=== PATIENT | female | born 1985 | race Caucasian/White ===

== ENCOUNTER 2017-05-16 09:49 | Emergency (ER) | payer OTHER ==
[2017-05-16 09:59] VITALS: BP 118/71
--- NOTE | 2017-05-16 10:58 | UC ---
chris Stanton Timothy, scribed for Kanchan Argueta MD on 05/16/17 at 1038 . FLU HPI - HPI Summary HPI Summary: Adriana Botello is a 31 yo female presenting to [facility] with sinus congestion and fatigue since 05/11/17, with 5/10 sore throat. Pt reports ear congestion, sinus congestion, post nasal drip. She also notes productive cough, yellow sputum - states "its my snot" She also c/o intermittent fevers and has treated with Motrin. Last dose last night. Pt denies nausea, vomiting. Pt report HERNANDEZ. No vision change. No rash. 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 Pt smokes 1/2 ppd. Her PMHx includes asthma, hemorrhage, possible mood d/o and tobacco use. She has not self-medicated today. Pt medication list reviewed this visit. - History of Current Complaint Chief Complaint: UCGeneralIllness Stated Complaint: SORE THROAT Time Seen by Provider: 05/16/17 10:52 Hx Obtained From: Patient Hx Last Menstrual Period: Pt states BC for period q 3 months; doesn't know date Onset/Duration: Gradual Onset, Lasting Days, Still Present Severity Currently: Moderate Severity Initially: Moderate Pain Intensity: 5 Pain Scale Used: 0-10 Numeric Associated Signs & Symptoms: Positive: Fever, T Max - 105, Cough, Sore Throat, Nasal Congestion - Allergy/Home Medications Allergies/Adverse Reactions: Allergies Allergy/AdvReac Type Severity Reaction Status Date / Time Aloe Allergy Severe Rash Verified 05/16/17 09:59 Hydrocodone [From Vicodin] Allergy Rash Verified 05/16/17 09:59 latex Allergy Swelling Uncoded 05/16/17 09:59 Home Medications: Home Medications Levonorgestrel-Ethinyl Estradi [Ashlyna 0.15-0.03 &0.01 mg] 1 tab PO DAILY 05/16 [History Confirmed 05/16/17] PMH/Surg Hx/FS Hx/Imm Hx Previously Healthy: Yes Respiratory History: Asthma Psychological History: Other Other Psychological History: possible mood d/o Other History Of: Negative For: Anticoagulant Therapy - Surgical History Surgical History: Yes Surgery Procedure, Year, and Place: D&C - Family History Known Family History: Positive: Cardiac Disease, Diabetes, Respiratory Disease - Social History Alcohol Use: None Substance Use Type: None Substance Use Comment - Amount & Last Used: pt notes remote hx of use. no use during preg noted Smoking Status (MU): Heavy Every Day Tobacco Smoker Type: Cigarettes Amount Used/How Often: 1/2 PPD Have You Smoked in the Last Year: Yes Household Exposure Type: Cigarettes - Immunization History Most Recent Influenza Vaccination: never Most Recent Tetanus Shot: up to date - 2009 Most Recent Pneumonia Vaccination: never Review of Systems Constitutional: Fever, Fatigue Skin: Negative Eyes: Negative ENT: Sore Throat, Nasal Discharge, Sinus Congestion Respiratory: Negative Cardiovascular: Negative Gastrointestinal: Negative Genitourinary: Negative Motor: Negative Neurovascular: Negative Musculoskeletal: Negative Neurological: Negative Psychological: Negative All Other Systems Reviewed And Are Negative: Yes Physical Exam Triage Information Reviewed: Yes Appearance: Well-Appearing - tired appearing, No Pain Distress, Well-Nourished Vital Signs: Initial Vital Signs Temp 98.2 F 05/16/17 09:55 Pulse 87 05/16/17 09:55 Resp 16 05/16/17 09:55 BP 118/71 05/16/17 09:55 Pulse Ox 100 05/16/17 09:55 Vital Signs Reviewed: Yes Eye Exam: Normal ENT Exam: Normal ENT: Positive: Normal ENT inspection. Negative: TMs normal - left TM + fluid, no retraction turnbinates inflammed and boggy + PND No exudate, no erythema uvula midline Dental Exam: Normal Neck exam: Normal Neck: Positive: Supple Respiratory Exam: Normal Respiratory: Positive: Chest non-tender, Lungs clear, Normal breath sounds, No respiratory distress, No accessory muscle use, Other: - mild, intermittent cough Cardiovascular Exam: Normal Cardiovascular: Positive: RRR, No Murmur Abdominal Exam: Normal Abdomen Description: Positive: Nontender, No Organomegaly, Soft Bowel Sounds: Positive: Present Musculoskeletal Exam: Normal Musculoskeletal: Positive: Strength Intact Neurological Exam: Normal Neurological: Positive: Alert Psychological Exam: Normal Skin Exam: Normal Flu Course/Dx - Course Course Of Treatment: Adriana Botello is a 31 yo female presenting to [facility] with 5/ 10 sore throat, sinus congestion, fatigue, pnd intermittent fever x 5 days. Her group A rapid strep test is negative. Pt with pnd, boggy turbinates and fluid b/ l ears on exam. will Rx flonase, z pack. hydrate. work note. OTC decongstant. pcp f/u. secretion precautions discussed - Differential Dx/Diagnosis Differential Diagnosis/HQI/PQRI: Other - strep, sinus infection Provider Diagnoses: sinusitis Discharge - Discharge Plan Condition: Stable Disposition: HOME Prescriptions: Azithromycin TAB* [Zithromax TAB (Z-DEON) 250 mg #6 tabs] 2 tab PO .TODAY, THEN 1 DAILY #1 deon Fluticasone NASAL SPRAY 50MCG* [Flonase NASAL SPRAY 50MCG*] 1 spray BOTH NARES DAILY #1 btl Patient Education Materials: Sinusitis (ED) Forms: *Work Release Referrals: Jessica Gordon NP [Primary Care Provider] - 2 Days Additional Instructions: - Stay well hydrated. Drink plenty of non-alcoholic, non-caffinated beverages. - Gargle with warm, salt water 2-3 times a day - - After you have been on antibiotics for 2 days - change your toothbrush and your pillowcase. These infections are spread by secretions - do NOT share eating or drinking utensils - clean items you share with other people such as cell phones, computer mouse, TV remote, computer tablets, etc - Alternate ibuprofen (Advil, Motrin) 600mg and Tylenol every 3 hours for pain or fever. Take with food. Do NOT take for more than 4-5 days. - Take antibiotics as prescribed until gone. Use nasal spray as instructed. t. Call your doctor or return with questions or concerns The documentation as recorded by the chris jensen Timothy accurately reflects the service I personally performed and the decisions made by me, Kanchan Argueta MD.
== END 2017-05-16 11:04 | disposition home or self-care (01) ==
LOC: UCEAST 09:49
DX: Z72.0 Tobacco use (principal); J32.9 Chronic sinusitis, unspecified
CPT/HCPCS: 87651; 99212; G0463

== ENCOUNTER 2017-07-26 16:08 | Emergency (ER) | payer OTHER ==
[2017-07-26 16:21] VITALS: BP 118/73
[2017-07-26] MEDS ORDERED: Dexamethasone TAB* 4 MG PO ONE ×2 (16:32)
[2017-07-26] MEDS ORDERED: Penicillin VK TAB* 250 MG PO ONE (16:33)
[2017-07-26] MEDS ORDERED: Acetaminophen TAB* 325 MG PO ONE (16:34)
--- NOTE | 2017-07-26 16:48 | UC ---
Throat Pain/Nasal [place] HPI - HPI Summary HPI Summary: Patient presents with complaints of painful sore throat with swollen glands x three days. She was started on Zithromax on Monday and reports that her throat pain has gotten worse, and she has more white spots on her tonsils. She is able to swallow her saliva, and drink water. She denies fever or chills, cough or chest congestion., chest pain, nausea, or vomiting. - History of Current Complaint Chief Complaint: UCGeneralIllness Stated Complaint: THROAT COMPLAINT Time Seen by Provider: 07/26/17 16:27 Hx Obtained From: Patient Hx Last Menstrual Period: unk ?: No Onset/Duration: Lasting Days Severity: Severe Cough: None Associated Signs & Symptoms: Positive: Negative - Epiglottits Risk Factors Epiglottis Risk Factors: Negative - Allergies/Home Medications Allergies/Adverse Reactions: Allergies Allergy/AdvReac Type Severity Reaction Status Date / Time Aloe Allergy Severe Rash Verified 07/26/17 16:14 Hydrocodone [From Vicodin] Allergy Rash Verified 07/26/17 16:14 latex Allergy Swelling Uncoded 07/26/17 16:14 Home Medications: Home Medications Azithromycin TAB* [Zithromax TAB (Z-DEON) 250 mg #6 tabs] 2 tab PO .TODAY, THEN 1 DAILY 07/26/17 [History Confirmed 07/26/17] PMH/Surg Hx/FS Hx/Imm Hx Previously Healthy: Yes Other History Of: Negative For: Anticoagulant Therapy - Surgical History Surgical History: Yes Surgery Procedure, Year, and Place: D&C - Family History Known Family History: Positive: None, Cardiac Disease, Diabetes, Respiratory Disease - Social History Occupation: Employed Full-time Alcohol Use: Occasionally Substance Use Type: None Substance Use Comment - Amount & Last Used: pt notes remote hx of use. no use during preg noted Smoking Status (MU): Heavy Every Day Tobacco Smoker Type: Cigarettes Amount Used/How Often: 1/2 PPD Have You Smoked in the Last Year: Yes Household Exposure Type: Cigarettes - Immunization History Most Recent Influenza Vaccination: never Most Recent Tetanus Shot: up to date - 2009 Most Recent Pneumonia Vaccination: never Review of Systems Constitutional: Fatigue Skin: Negative Eyes: Negative ENT: Sore Throat Respiratory: Negative Cardiovascular: Negative Gastrointestinal: Negative Genitourinary: Negative Motor: Negative Neurovascular: Negative All Other Systems Reviewed And Are Negative: Yes Physical Exam Triage Information Reviewed: Yes Appearance: Ill-Appearing Vital Signs: Initial Vital Signs Temp 100 F 07/26/17 16:15 Pulse 100 07/26/17 16:15 Resp 20 07/26/17 16:15 BP 118/73 07/26/17 16:15 Pulse Ox 100 07/26/17 16:15 Vital Signs Reviewed: Yes Eye Exam: Normal ENT Exam: Normal ENT: Positive: Pharyngeal erythema, Tonsillar swelling, Tonsillar exudate, Muffled/hoarse voice, Other: - tonsil nodes edematous 2+bilaterally. Uvula raises midline on phonation. No tonsilar abcess noted. Neck: Positive: Enlarged Nodes @ - right tonsilar Respiratory Exam: Normal Cardiovascular Exam: Normal Abdominal Exam: Normal Skin Exam: Normal Throat Pain/Nasal Course/Dx - Course Course Of Treatment: Patient presents with three day onset progressivley worsening painful sore throat. She is able to handle her own secretions, and drink water. A throat culture was obtained and is pending. The patient was given penvk 500 mg and decadron 8 mg, and tylenol 650 mg in the department, and upon further discussion the medication was changed to clinydmycin 300 mg by , mouth three times daily x 10 days. Pain was addressed with 10 percocoet which the patient ahs taken before. She was instructed to go to the ER if her symtoms worsnen. She was discharge home in stable condition. - Differential Dx/Diagnosis Provider Diagnoses: strep throat Discharge - Discharge Plan Condition: Stable Disposition: HOME Prescriptions: Clindamycin Cap(NF) [Clindamycin Cap 300 mg Cap(NF)] 300 mg PO TID #30 cap Oxycodone W/ Acetaminophen [Percocet 2.5-325 mg (NF)] 1 tab PO Q6H PRN #10 tab MDD 4 PRN Reason: throat pain Patient Education Materials: Pharyngitis (ED), Strep Throat (ED) Referrals: Jessica Gordon NP [Primary Care Provider] - Additional Instructions: If your symptoms worsen and/or you can not swallow your spit you will need to go the the ER at once.
--- NOTE | 2017-07-28 19:24 | UC ---
Progress - Progress Note Progress Note: CALL PATIENT. THROAT CX (-). IF WORSE ER.
== END 2017-07-26 16:55 | disposition home or self-care (01) ==
LOC: UCEAST 16:08
DX: J02.0 Streptococcal pharyngitis (principal); Z88.5 Allergy status to narcotic agent; Z91.040 Latex allergy status; F17.210 Nicotine dependence, cigarettes, uncomplicated
CPT/HCPCS: 87070; 99212; A9270-GY; G0463; J8540

== ENCOUNTER 2018-01-28 00:15 | Emergency (ER) | payer OTHER ==
[2018-01-28] MEDS ORDERED: Ondansetron INJ* 2 MG/ML VIAL IV ONE (01:07)
[2018-01-28] MEDS ORDERED: NS 0.9% 1000 ML* 1,000 ML IV ONE (01:07)
[2018-01-28] MEDS ORDERED: Ketorolac INJ* 30 MG/ML 1 ML VIAL IV ONE (01:07)
[2018-01-28] MEDS ORDERED: Famotidine IV* 10 MG/ML 2 ML (20 mg) IV ONE (01:07)
[2018-01-28] MEDS ORDERED: Ondansetron ODT TAB* 4 MG SL ONE (01:39)
[2018-01-28] MEDS ORDERED: traMADol TAB* 50 MG PO ONE (01:40)
[2018-01-28 01:47] LABS: ABS Basophils 0.1 10^3/ul (0-0.2); ABS Eosinophils 0.1 10^3/ul (0-0.6); ABS Lymphocytes 2.6 10^3/ul (1.0-4.8); ABS Neutrophils 11.8 10^3/ul (1.5-7.7); ABS Nucleated RBC 0 10^3/ul; Eosinophil % 0.4 % (0-6); Hematocrit 39 % (35-47); Hemoglobin 13.7 g/dl (12.0-16.0); Lymphocyte % 16.9 % (25-47); Mean Corpuscular HGB Conc 35 g/dl (31-36); Mean Corpuscular Hemoglobin 31 pg (27-31); Mean Corpuscular Volume 88 fL (80-97); Mean Platelet Volume 9 um3 (7.4-10.4); Nucleated Red Blood Cells % 0; Platelet Count 222 10^3/ul (150-450); Red Blood Count 4.44 10^6/ul (4.0-5.4); Red Cell Distribution Width 13 % (10.5-15); White Blood Count 15.5 10^3/ul (3.5-10.8)
[2018-01-28 01:56] LABS: EGFR Non-African American 144.9 (>60)
[2018-01-28 02:47] LABS: Urine Appearance Clear; Urine Blood 1+ (Negative); Urine Color Yellow; Urine Ketones Negative (Negative); Urine Protein Negative (Negative); Urine Specific Gravity 1.009 (1.010-1.030); Urine Urobilinogen Negative (Negative)
[2018-01-28 03:09] VITALS: BP 110/41
--- NOTE | 2018-01-29 16:23 | ED ---
Karoline Stanton Emily, scribed for Chuy Ibarra MD on 01/28/18 at 0110 . Abdominal Pain/Female - HPI Summary HPI Summary: This patient is a 32 year old F presenting to [facility] accompanied by family with a chief complaint of LUQ and suprapubic abd pain that began at 1999 on 01/27/18. The patient rates the pain 5/10 in severity. Symptoms aggravated by nothing. Symptoms alleviated by nothing. Patient reports nausea, vomiting, and fever. Patient denies diarrhea or dysuria. pt denies any new foods, medications, or exposures. Pt deneis any new sick contacts. - History of Current Complaint Chief Complaint: EDAbdPain Stated Complaint: VOMITING Time Seen by Provider: 01/28/18 00:53 Hx Obtained From: Patient Hx Last Menstrual Period: unk Onset/Duration: Sudden Onset, Lasting Hours, Still Present Timing: Constant Severity Initially: Moderate Severity Currently: Moderate Pain Intensity: 5 Pain Scale Used: 0-10 Numeric Location: Discrete At: LUQ, Suprapubic Aggravating Factor(s): Nothing Alleviating Factor(s): Nothing Associated Signs and Symptoms: Positive: Nausea, Vomiting, Other: - Negative dysuria. Negative: Diarrhea Allergies/Adverse Reactions: Allergies Allergy/AdvReac Type Severity Reaction Status Date / Time MS Aloe [Aloe] Allergy Severe Rash Verified 01/28/18 00:21 MS Hydrocodone [From Vicodin] Allergy Rash Verified 01/28/18 00:21 latex Allergy Swelling Uncoded 01/28/18 00:21 PMH/Surg Hx/FS Hx/Imm Hx Previously Healthy: No Endocrine/Hematology History: Denies: Hx Anticoagulant Therapy, Hx Diabetes, Hx Thyroid Disease Cardiovascular History: Denies: Hx Hypertension, Hx Pacemaker/ICD Respiratory History: Reports: Hx Asthma - teenage Denies: Hx Chronic Obstructive Pulmonary Disease (COPD) GI History: Denies: Hx Ulcer History: Denies: Hx Renal Disease Neurological History: Denies: Hx Dementia, Hx Seizures Psychiatric History: Reports: Hx Community Mental Health Tx - past treatement at [facility] pt states not currently active, Other Psychiatric Issues/Disorders - Per MOM's RN pt id with diag of "mood disorder" Denies: Hx Substance Abuse - Surgical History Surgery Procedure, Year, and Place: D&C - Immunization History Date of Tetanus Vaccine: Pt states unsure Date of Influenza Vaccine: none Infectious Disease History: No Infectious Disease History: Denies: Hx Clostridium Difficile, Hx Hepatitis, Hx Human Immunodeficiency Virus (HIV), Hx of Known/Suspected MRSA, Hx Shingles, Hx Tuberculosis, Hx Known/ Suspected VRE, Hx Known/Suspected VRSA, History Other Infectious Disease, Traveled Outside the [place] in Last 30 Days - Family History Known Family History: Positive: Cardiac Disease, Diabetes, Respiratory Disease - Social History Occupation: Employed Full-time Lives: Alone Alcohol Use: Occasionally Substance Use Type: Reports: None Substance Use Comment - Amount & Last Used: pt notes remote hx of use. no use during preg noted Hx Tobacco Use: Yes Smoking Status (MU): Heavy Every Day Tobacco Smoker Type: Cigarettes Amount Used/How Often: 1/2 PPD Have You Smoked in the Last Year: Yes Review of Systems Positive: Abdominal Pain, Vomiting, Nausea. Negative: Diarrhea Negative: dysuria All Other Systems Reviewed And Are Negative: Yes Physical Exam - Summary Physical Exam Summary: Appearance: Well-appearing, no distress, Well-nourished Skin: Warm, color reflects adequate perfusion Head: Normal Head/Face inspection Eyes: Conjunctiva clear, EOMI ENT: Mildly dry mucous membranes Neck: Supple, no nodes, no JVD. Respiratory: Lungs clear, Normal breath sounds, no respiratory distress Cardio: RRR, No murmur, pulses normal, brisk capillary refill Abdomen: soft, nontender, no guarding, no rebound Bowel sounds: present Musculoskeletal: Strength Intact/ ROM intact. No calf tenderness. No edema. Neuro: Alert, muscle tone normal, facial symmetry, speech normal, sensory/motor intact Psychological: Normal Triage Information Reviewed: Yes Vital Signs On Initial Exam: Initial Vitals Temp Pulse Resp BP Pulse Ox 97.9 F 103 16 119/85 100 01/28/18 00:15 01/28/18 00:15 01/28/18 00:15 01/28/18 00:15 01/28/18 00:15 Vital Signs Reviewed: Yes Diagnostics - Vital Signs Vital Signs Temp Pulse Resp BP Pulse Ox 01/28/18 00:15 97.9 F 103 16 119/85 100 - Laboratory Lab Results: Lab Results 01/28/18 01/28/18 01/28/18 Range/Units 01:30 01:30 02:30 WBC 15.5 H (3.5-10.8) 10^3/ul RBC 4.44 (4.0-5.4) 10^6/ul Hgb 13.7 (12.0-16.0) g/dl Hct 39 (35-47) % MCV 88 (80-97) fL MCH 31 (27-31) pg MCHC 35 (31-36) g/dl RDW 13 (10.5-15) % Plt Count 222 (150-450) 10^3/ul MPV 9 (7.4-10.4) um3 Neut % (Auto) 76.0 (38-83) % Lymph % (Auto) 16.9 L (25-47) % Bledsoe % (Auto) 6.2 (0-7) % Eos % (Auto) 0.4 (0-6) % Baso % (Auto) 0.5 (0-2) % Absolute Neuts (auto) 11.8 H (1.5-7.7) 10^3/ul Absolute Lymphs (auto) 2.6 (1.0-4.8) 10^3/ul Absolute Monos (auto) 1.0 H (0-0.8) 10^3/ul Absolute Eos (auto) 0.1 (0-0.6) 10^3/ul Absolute Basos (auto) 0.1 (0-0.2) 10^3/ul Absolute Nucleated RBC 0 10^3/ul Nucleated RBC % 0 Sodium 133 (133-145) mmol/L Potassium TNP Chloride 102 (101-111) mmol/L Carbon Dioxide 24 (22-32) mmol/L Anion Gap 7 (2-11) mmol/L BUN 6 (6-24) mg/dL Creatinine 0.50 L (0.51-0.95) mg/dL Est GFR ( Amer) 186.3 (>60) Est GFR (Non-Af Amer) 144.9 (>60) BUN/Creatinine Ratio 12.0 (8-20) Glucose 87 (70-100) mg/dL Calcium 9.4 (8.6-10.3) mg/dL Total Bilirubin 0.30 (0.2-1.0) mg/dL AST TNP ALT 12 (7-52) U/L Alkaline Phosphatase 44 (34-104) U/L Total Protein 7.5 (6.4-8.9) g/dL Albumin 4.5 (3.2-5.2) g/dL Globulin 3.0 (2-4) g/dL Albumin/Globulin Ratio 1.5 (1-3) Lipase < 10 L (11.0-82.0) U/L Beta HCG, Quant 14954.00 mIU/mL Urine Color Yellow Urine Appearance Clear Urine pH 5.0 (5-9) Ur Specific [place] 1.009 L (1.010-1.030) Urine Protein Negative (Negative) Urine Ketones Negative (Negative) Urine Blood 1+ A (Negative) Urine Nitrate Negative (Negative) Urine Bilirubin Negative (Negative) Urine Urobilinogen Negative (Negative) Ur Leukocyte Esterase Negative (Negative) Urine WBC (Auto) Absent (Absent) Urine RBC (Auto) 1+(3-5/hpf) A (Absent) Ur Squamous Epith Cells Present A (Absent) Urine Bacteria Absent (Absent) Urine Glucose Negative (Negative) Result Diagrams: 01/28/18 01:30 01/28/18 01:30 Lab Statement: Any lab studies that have been ordered have been reviewed, and results considered in the medical decision making process. Re-Evaluation - Re-Evaluation First Eval Re-Evaluation Time: 02:57 Change: Improved Comment: Pt resting comfortably in bed. Pt symptomatically improved. pt tolerating po without vomiting. Abdominal Pain Fem Course/Dx - Course Course Of Treatment: Pt with new diagnosis of . Plan to start vitamins, anitemetics, with OB f/u. - Diagnoses Differential Diagnosis: Positive: Appendicitis, Constipation, Diverticulitis, Ovarian Cyst, Pelvic Inflammatory Disease, Pneumonia, , Renal Colic Provider Diagnoses: Discharge - Discharge Plan Condition: Improved Disposition: HOME Prescriptions: Vitamin TAB* 1 tab PO DAILY 30 Days #30 tab Promethazine TAB* [Phenergan TAB*] 25 mg PO Q6H PRN #10 tab PRN Reason: Vomiting Patient Education Materials: (ED) Referrals: Jessica Gordon NP [Primary Care Provider] - Tin Rogel MD [Medical Doctor] - As Soon As Possible The documentation as recorded by the Karoline jensen Emily accurately reflects the service I personally performed and the decisions made by me, Chuy Ibarra MD.
== END 2018-01-28 03:08 | disposition home or self-care (01) ==
LOC: ED 00:15
DX: Z33.1 Pregnant state, incidental (principal); R10.12 Left upper quadrant pain; R11.2 Nausea with vomiting, unspecified; R50.9 Fever, unspecified; Z88.5 Allergy status to narcotic agent; F17.210 Nicotine dependence, cigarettes, uncomplicated
CPT/HCPCS: 36415; 80053; 81003; 81015; 83690; 84702; 85025; 99282; A9270-GY

== ENCOUNTER 2018-03-29 15:21 | Emergency (ER) | payer OTHER ==
--- NOTE | 2018-03-29 15:54 | UC ---
Lower Extremity/Ankle HPI - HPI Summary HPI Summary: 32 17 weeks EGA female with swelling in her extremity. c/o waking up today with bilateral hand swelling on and off. Denies injury. Called OB who advised her to be seen here. No HERNANDEZ. No UTI Sx. Swelling went down throughout the day. Of note had [employer] sandwich yesterday . [ End ] - History of Current Complaint Chief Complaint: UCUpperExtremity Stated Complaint: SWOLLEN HAND, AND BACK PAIN Time Seen by Provider: 03/29/18 15:46 Hx Obtained From: Patient Hx Last Menstrual Period: unk Onset/Duration: Sudden Onset Pain Intensity: 0 Aggravating Factor(s): Nothing Alleviating Factor(s): Nothing - Allergies/Home Medications Allergies/Adverse Reactions: Allergies Allergy/AdvReac Type Severity Reaction Status Date / Time acetaminophen [From Vicodin] Allergy Rash Verified 03/29/18 15:39 aloe Allergy Rash Verified 03/29/18 15:39 hydrocodone [From Vicodin] Allergy Rash Verified 03/29/18 15:39 latex Allergy Swelling Verified 03/29/18 15:39 Home Medications: Home Medications NK [No Home Medications Reported] 03/29/18 [History Confirmed 03/29/18] PMH/Surg Hx/FS Hx/Imm Hx Previously Healthy: Yes Other History Of: Negative For: Anticoagulant Therapy - Surgical History Surgical History: Yes Surgery Procedure, Year, and Place: D&C - Family History Known Family History: Positive: None, Cardiac Disease, Diabetes, Respiratory Disease - Social History Occupation: Employed Full-time Alcohol Use: Occasionally Substance Use Type: None Substance Use Comment - Amount & Last Used: pt notes remote hx of use. no use during preg noted Smoking Status (MU): Heavy Every Day Tobacco Smoker Type: Cigarettes Amount Used/How Often: 1/2 PPD Have You Smoked in the Last Year: Yes Household Exposure Type: Cigarettes Cessation Counseling: Patient Advised to Stop - Immunization History Most Recent Influenza Vaccination: never Most Recent Tetanus Shot: 2009 Most Recent Pneumonia Vaccination: never Review of Systems Musculoskeletal: Other: - hand swelling Is Patient Immunocompromised?: No All Other Systems Reviewed And Are Negative: Yes Physical Exam Triage Information Reviewed: Yes Appearance: Well-Appearing, No Pain Distress, Well-Nourished Vital Signs: Initial Vital Signs Temp 98.4 F 03/29/18 15:35 Pulse 98 03/29/18 15:35 Resp 12 03/29/18 15:35 BP 129/71 03/29/18 15:35 Pulse Ox 100 03/29/18 15:35 Vital Signs Reviewed: Yes Eye Exam: Normal ENT Exam: Normal Dental Exam: Normal Neck exam: Normal Neck: Positive: 1 Respiratory Exam: Normal Cardiovascular Exam: Normal Abdominal Exam: Normal Musculoskeletal Exam: Normal Neurological Exam: Normal Psychological Exam: Normal Skin Exam: Normal Lower Extremity Course/Dx - Course Course Of Treatment: Intermittent fluid retention from high sodium fast food. advised lower sodium diet. increase water intake. f/u with OB or PCP. Normal exam - Differential Dx/Diagnosis Provider Diagnoses: hand edema. Discharge - Sign-Out/Discharge Documenting (check all that apply): Discharge/Admit/Transfer - Discharge Plan Condition: Good Disposition: HOME Patient Education Materials: Edema (ED) Referrals: Jessica Gordon NP [Primary Care Provider] - 4 Days Additional Instructions: If any concerns for recurrent swelling please return for further evaluation. You blood pressure was normal. You had small amount of blood in your urine but no bacterial. Please drink water and a well rounded diet . Have a great rest of your - Billing Disposition and Condition Condition: GOOD Disposition: HOME
[2018-03-29 16:19] VITALS: BP 90/58
== END 2018-03-29 16:25 | disposition home or self-care (01) ==
LOC: UCEAST 15:21
DX: O12.02 Gestational edema, second trimester (principal); Z3A.17 17 weeks gestation of pregnancy; Z88.5 Allergy status to narcotic agent; Z88.6 Allergy status to analgesic agent; Z91.040 Latex allergy status; F17.210 Nicotine dependence, cigarettes, uncomplicated
CPT/HCPCS: 81003; 99211; G0463

== ENCOUNTER 2018-09-13 08:09 | Inpatient (IN) | payer OTHER ==
[2018-09-13] MEDS ORDERED: Nicotine Inhaler* 10 MG AMP INH PRN (08:58)
[2018-09-13] MEDS ORDERED: Mouth Piece, Nicotine* 1 EACH CARTRIDGE INH PRN (08:58)
--- NOTE | 2018-09-13 09:07 | HP ---
General Information - Reason for Visit Pt here for induction of labor in post dates @ 41+0 weeks. - General Information Maternal Age: 32 Grav: 7 Para: 2 SAB: 2 IEA: 2 Estimated Due Date: 09/06/18 Determined By: Early Ultrasound Maternal Blood Type and Rh: O Positive - Results this Serology/RPR Result: Non-Reactive Rubella Result: Immune HBsAg Result: Negative HIV Result: Negative GBS Culture Result: Positive Past Medical History Delivery History: Hx Uncomplicated Vaginal Delivery, Hx Complicated Vaginal Delivery Delivery History Comment: SVB 2007 with delayed PPH and D&C weeks after delivery SVB 2013 Pertinent Past Medical History: See Records Past Medical History Comment: Back pain-DDD Migraine Hirsutism Pertinent Past Surgical History: See Records Past Surgical History Comment: D&C 2008 Pertinent Family History: Non-Contributory Family History Comment: HTN Clotting disorder in daughter Diabetes Alcoholism Heart dz Pancreatic CA - Antepartal Records Antepartal Records: Reviewed, Uncomplicated Review of Systems Constitutional: Comfortable CV Complaint: No Respiratory: Shortness of Breath: No Gastrointestinal: No Nausea/Vomiting, Normal Bowel Movement Genitourinary: No Dysuria, No Bleeding, No Leaking Fluid Musculoskeletal: Back Pain Neurological: No Headache, No Visual Changes Movement: Normal Exam Allergies/Adverse Reactions: Allergies acetaminophen [From Vicodin] Allergy (Verified 09/13/18 07:48) Rash aloe Allergy (Verified 09/13/18 07:48) Swelling Of Face,Lips,& Throat rash/skin peeling when used topically, itching of throat when taken internally hydrocodone [From Vicodin] Allergy (Verified 09/13/18 07:48) Rash latex Allergy (Verified 09/13/18 07:48) Swelling BP 127/74 T 97.5 HR 110 RR 18 O2 100 - Measurements Height: 5 ft 5 in Weight: 196 lb Weight in lbs: 196.714817 Body Mass Index (BMI): 32.5 Pre- Weight: 170 lb Weight Gained This : 26 lbs and 0 ozs - Exam Breast: Breast Exam Deferred CVA: No CVA Tenderness Extremities: No Edema Heart: Normal Rhythm/Heart Sounds HEENT: No Significant Findings Lungs: Clear Bilaterally Rectal: Rectal Exam Deferred Reflexes: DTR 2+, - - no clonus Thyroid: - - WNL @ entry to care - Abdominal Exam Abdomen Exam: Non-Tender - Ultrasound/Biophysical Profile Ultrasound Status: Not Done Targeted Exam Findings See L&D Outpatient Visit Provider Note for Findings: Yes Estimated Weight: 8-8.5lb Cervical Exam: 3cm Effacement: 90% Station: -1 Presenting Part: Vertex Membrane Status: AROM Amniotic Fluid Evaluation: Clear Bleeding/Discharge: None EFM Findings - External Monitor Findings Baseline Heart Rate: 125 External Monitor Findings: Accelerations Present, No Pattern of Variable or Late Decelerations, Variability Moderate Contractions: None - Uterine irritability on monitor; palpates soft throughout, < 45 Seconds Assessment/Plan - Assessment 32 yo with IUP @ 41+0 weeks gestation for induction of labor. IBOW. No evidence metabolic acidemia - Obstetrical Risk Factors Obstetrical Risk Factors: GBS Positive, Post-Dates - Plan Plan: Induction, Admit - Anticipate Vaginal Delivery Plan Comment: Admit to L&D. Begin GBS prophylaxis prior to induction due to history of fast labor. Patient nervous about induction and would like to begin with amniotomy and consider pitocin if no labor. PARQ discussion of amniotomy and patient in agreement. Would like unmedicated . Anticipate SVB. - Date/Time of Admission Date of Admission: 09/13/18 Time of Admission: 08:33
[2018-09-13] MEDS ORDERED: Penicillin G Potassium IV* 5,000,000 UNITS in NS 0.9% 100 ML* 100 ML IVPB ONE (09:30)
[2018-09-13 09:38] LABS: ABS Basophils 0 10^3/ul (0-0.2); ABS Eosinophils 0.1 10^3/ul (0-0.6); ABS Lymphocytes 2.1 10^3/ul (1.0-4.8); ABS Monocytes 0.6 10^3/ul (0-0.8); ABS Neutrophils 7.6 10^3/ul (1.5-7.7); ABS Nucleated RBC 0 10^3/ul; Eosinophil % 0.9 % (0-6); Hematocrit 36 % (35-47); Hemoglobin 12.1 g/dl (12.0-16.0); Lymphocyte % 20.2 % (25-47); Mean Corpuscular HGB Conc 34 g/dl (31-36); Mean Corpuscular Hemoglobin 30 pg (27-31); Mean Corpuscular Volume 89 fL (80-97); Mean Platelet Volume 10.7 um3 (7.4-10.4); Nucleated Red Blood Cells % 0; Platelet Count 171 10^3/ul (150-450); Red Blood Count 4.05 10^6/ul (4.00-5.40); Red Cell Distribution Width 14 % (10.5-15); White Blood Count 10.4 10^3/ul (3.5-10.8)
[2018-09-13] MEDS: Penicillin G Potassium IV* 2,500,000 UNITS in NS 0.9% 100 ML* 100 ML IVPB SCH ×2 (13:50→19:07)
[2018-09-13] MEDS ORDERED: Oxytocin in LR* 20 UNITS/1,000 ML BAG IVPB ONE (15:51)
[2018-09-13] MEDS ORDERED: Oxytocin in LR* 20 UNITS/1,000 ML BAG IVPB SCH (16:00)
[2018-09-13] MEDS ORDERED: Witch Hazel PAD* JAR ONE (18:03)
[2018-09-13] MEDS ORDERED: Ibuprofen TAB* 600 MG ONE (18:17)
[2018-09-13] MEDS ORDERED: Witch Hazel PAD* JAR TOPICAL PRN (18:31)
[2018-09-13] MEDS ORDERED: Acetaminophen TAB* 325 MG PO PRN (18:31)
[2018-09-13] MEDS ORDERED: Dibucaine 1% 28.35 GM TUBE PR PRN (18:31)
[2018-09-13] MEDS ORDERED: Tetan/Diph/Pertus SYR(Tdap)* 0.5 ML SYR(BOOSTRIX) use SYR IM ONE (18:31)
[2018-09-13] MEDS ORDERED: Glycerin ADULT SUPP PR PRN (18:31)
--- NOTE | 2018-09-13 18:59 | PN ---
Progress Note - Progress Note Date of Service: 09/13/18 - Note time 3665 Note: S: Patient tearful, states "I want to go home". Reports no contractions. Small trickles of clear fluid with cough or movement since AROM @ approx 11am. O: VE deferred VSS, afebrile FHT 120, no decels, +accels, mod shaun uterine irritability GBS prophylaxis given A: IUP @ 41 weeks gestation for IOL No evidence metabolic acidemia Uterine irritability but no regular contraction pattern P: PARQ discussion of pitocin trial, low dose. Patient in agreement.
--- NOTE | 2018-09-13 19:14 | PROCNOTE ---
[facility] OB: Delivery Note - Delivery A Date of : 09/13/18 Time of : 17:48 [place] Weight at : 8 lb 13 oz Score 1 Minute: 9 Score 5 Minutes: 9 Gestational Age in Weeks and Days at Delivery: 41 Weeks and 0 Days Delivery Method: Spontaneous Vaginal Labor: Induced Did Patient attempt ?: No, Did Not Attempt Amniotic Fluid: Clear Estimated Blood Loss: 300 Anesthesia/Analgesia: None Delivered By: Marsha Palacios - Nursery Level of Nursery: Regular/Bedside - Perineum Perineal Injury: None/Intact - Events Delivery Events of Note: Pitocin During Labor, Full Course of Antibiotics - Additional Delivery Notes Additional Delivery Notes: After approx 30 minutes of pitocin @ 1, patient experiencing UCs approx Q 1-1.5 min and feeling an urge to push while sitting on toilet. Moved to bed, pit discontinued and found to be 6cm on exam. Encouraged to blow through contractions. Quickly progressed to ant lip. Iced to reduce swelling and finally reduced manually with contractions. Two pushes to slow controlled delivery of head OA-NISREEN @ 1748. Nuchal cord reduced on perineum. Shoulders followed with maternal efforts. Baby delivered to maternal abdomen after being dried/cleaned off slightly. Spontaneous respirations and HR>110. Cord doubly clamped and cut by FOB once pulsations ceased. Placenta delivered Schultze with gentle cord traction @ 1755. Noted to have 3VC and intact membranes. Fundus firm with massage. Perineum intact. Baby and mother stable and well; planning formula feeding. Baby name Rashad.
[2018-09-14] MEDS: Ibuprofen TAB* 600 MG PO PRN ×3 (02:36→19:57)
[2018-09-14 06:54] LABS: ABS Basophils 0.1 10^3/ul (0-0.2); ABS Eosinophils 0.1 10^3/ul (0-0.6); ABS Lymphocytes 2.9 10^3/ul (1.0-4.8); ABS Monocytes 0.8 10^3/ul (0-0.8); ABS Neutrophils 10.1 10^3/ul (1.5-7.7); ABS Nucleated RBC 0 10^3/ul; Eosinophil % 0.7 % (0-6); Hematocrit 33 % (35-47); Hemoglobin 11.3 g/dl (12.0-16.0); Lymphocyte % 20.6 % (25-47); Mean Corpuscular HGB Conc 34 g/dl (31-36); Mean Corpuscular Hemoglobin 30 pg (27-31); Mean Corpuscular Volume 88 fL (80-97); Mean Platelet Volume 10.6 um3 (7.4-10.4); Nucleated Red Blood Cells % 0.1; Platelet Count 168 10^3/ul (150-450); Red Blood Count 3.73 10^6/ul (4.00-5.40); Red Cell Distribution Width 14 % (10.5-15); White Blood Count 13.9 10^3/ul (3.5-10.8)
[2018-09-14] MEDS: Docusate CAP* 100 MG PO SCH ×4 (09:00→19:57)
[2018-09-14] MEDS ORDERED: Ferrous Gluconate TAB* 324 MG TAB PO SCH (09:00)
[2018-09-15] MEDS: Ibuprofen TAB* 600 MG PO PRN ×2 (02:55→10:16)
[2018-09-15 07:50] VITALS: BP 106/68
[2018-09-15] MEDS: Docusate CAP* 100 MG PO SCH (10:15)
== END 2018-09-15 12:50 | disposition home or self-care (01) | DRG 560 ==
LOC: MCHOBOUT 08:09 → MCHOB 08:33
PROVIDERS: ADMIT Midwife; ATTEND Midwife
PROC: 10E0XZZ Delivery of Products of Conception, External Approach (ICD-10-PCS; principal; 2018-09-13)
PROC: 3E033VJ Introduction of Other Hormone into Peripheral Vein, Percutaneous Approach (ICD-10-PCS; 2018-09-13)
PROC: 10907ZC Drainage of Amniotic Fluid, Therapeutic from Products of Conception, Via Natural or Artificial Opening (ICD-10-PCS; 2018-09-13)
DX: O48.0 Post-term pregnancy (principal); Z37.0 Single live birth; O99.824 Streptococcus B carrier state complicating childbirth; O99.334 Smoking (tobacco) complicating childbirth; F17.210 Nicotine dependence, cigarettes, uncomplicated; Z3A.41 41 weeks gestation of pregnancy
CPT/HCPCS: 36415; 85025; 86850; 86900; 86901; A9270-GY; J2540

== ENCOUNTER 2018-11-29 06:09 | Day surgery (SDC) | payer OTHER ==
[~2018-11-29 06:09] MED LIST: Buffered Lidocaine 1% SYRIN* 1 ML/SYRINGE INTRADERM ONE; Dexamethasone IV* 4 MG/ML 1 ML (4 MG) IV SLOW PU ONE; Famotidine IV* 10 MG/ML 2 ML (20 mg) IV ONE; Lactated Ringers 1000 ML Bag* 1,000 ML IV SCH
[2018-11-29] MEDS ORDERED: Buffered Lidocaine 1% SYRIN* 1 ML/SYRINGE INTRADERM ONE (06:47)
[2018-11-29] MEDS ORDERED: Sugammadex * 200 MG/2 ML VIAL IV PUSH ONE ×2 (07:00→07:47)
[2018-11-29] MEDS ORDERED: fentaNYL* 50 MCG/ML 2 ML VIAL (100 MCG VIAL) ONE ×2 (07:02→08:26)
[2018-11-29] MEDS ORDERED: Propofol* 10 MG/ML 20 ML BTL ONE (07:03)
[2018-11-29] MEDS ORDERED: Ondansetron INJ* 2 MG/ML VIAL ONE (07:03)
[2018-11-29] MEDS ORDERED: Ketorolac INJ* 30 MG/ML 1 ML VIAL ONE (07:03)
[2018-11-29] MEDS ORDERED: Rocuronium* 10 MG/ML VIAL ONE (07:03)
[2018-11-29] MEDS ORDERED: Midazolam* 1 MG/ML 2 ML VIAL (2 MG) ONE (07:03)
[2018-11-29] MEDS ORDERED: Dexamethasone IV* 4 MG/ML 1 ML (4 MG) ONE (07:04)
[2018-11-29] MEDS ORDERED: Famotidine IV* 10 MG/ML 2 ML (20 mg) ONE (07:04)
[2018-11-29] MEDS ORDERED: Lidocaine 2% PF * 5 ML VIAL ONE ×2 (07:04→07:59)
[2018-11-29] MEDS ORDERED: Bupivacaine 0.5% W/EPI SDV* 30 ML VIAL ONE (07:09)
[2018-11-29] MEDS ORDERED: Iodine Strong (LUGOL'S)* 14 ML BTL ONE ×2 (07:17→07:18)
[2018-11-29] MEDS ORDERED: Silver Nitrate/Potassium Nitr* 1 EA STICK ONE (07:17)
[2018-11-29] MEDS ORDERED: Acetic Acid 0.25%* 250 ML BTL ONE (07:18)
[2018-11-29] MEDS ORDERED: fentaNYL* 50 MCG/ML 2 ML VIAL (100 MCG VIAL) IV PRN (08:03)
[2018-11-29] MEDS ORDERED: DiMENhydriNATE IV* 50 MG/ML VIAL IV PUSH PRN (08:03)
[2018-11-29] MEDS ORDERED: Naloxone* 0.4 MG/ML 1 ML VIAL IV PRN (08:03)
[2018-11-29 08:54] VITALS: BP 128/90
[2018-11-29] MEDS ORDERED: oxyCODONE/Acetamin 5/325 MG* TAB ONE (09:18)
--- NOTE | 2018-11-29 12:44 | OP ---
DATE OF OPERATION: 11/29/18 - [facility] DATE OF : 89 SURGEON: Tin Rogel MD MISSILEMAN: None. ANESTHESIA: General endotracheal tube. PRE-OP DIAGNOSIS: Low grade SANA, desires permanent sterilization. POST-OP DIAGNOSIS: Low grade SANA, desires permanent sterilization. OPERATIVE PROCEDURE: Laparoscopic bilateral tubal ligation, colposcopy and biopsy. ESTIMATED BLOOD LOSS: Minimal. SPECIMEN: Includes cervical biopsy and endocervical curettage. COMPLICATIONS: None. FINDINGS: On colposcopy, there was an acetowhite area at about 1 o'clock position which was biopsied and the cervix was little difficult to visualize and the T-zone was just at the opening, an ECC was performed. On laparoscopy, anterior bladder flap appeared normal, the cul-de-sac appeared normal, both tubes and ovaries appeared normal, delivery surface is smooth, the gallbladder appeared normal, and the appendix appeared normal. DESCRIPTION OF PROCEDURE: The patient was identified, procedure identified as a colposcopy and laparoscopic tubal ligation. The patient was taken to the operating room, prepped and draped in the usual fashion in the dorsal lithotomy position under general anesthesia. A Graves speculum was placed in the vagina and dilute acetic acid solution was applied. Acetowhite epithelium was noted at 1 o'clock position which was biopsied using a punch biopsy and the endocervix was less well visualized. The T-zone could be mostly visualized and there was some white at the T-zone. An ECC was performed providing good biopsy of that area. Silver nitrite was applied to the cervical punch biopsy. IN the vagina, a sponge stick was placed. A small infraumbilical incision was made and the Veress needle was inserted through this. The abdomen was insufflated to 50 mmHg. The Veress needle was removed and the trocar was inserted using the Visiport . The above findings were noted. A second incision was made 2 cm above the pubic symphysis in the midline and a second trocar was inserted under direct visualization. The bipolar Kleppinger cautery was inserted. The right fallopian tubes was grasped at the mid portion followed out to its fimbriated ends and fulgurated x3. Attention was made to fulgurating the fimbria as well. Same procedure was carried on the left after following it out to its fimbriated ends. Good hemostasis was verified. All the instruments removed from the abdomen. The abdomen was deflated of CO2. The skin was closed using skin glue and all instruments removed from the vagina including the sponge stick and the patient returned to the recovery room in stable condition. [id number]/CPS #: [id number] MTDD
== END 2018-11-29 09:27 | disposition home or self-care (01) ==
LOC: OR 06:09
PROVIDERS: ATTEND Obstetrics & Gynecology
DX: Z30.2 Encounter for sterilization (principal); F17.210 Nicotine dependence, cigarettes, uncomplicated
CPT/HCPCS: 81025; 88305; 88342; A9270-GY; J1100; J1885; J2250; J2405; J2704; J3010

== ENCOUNTER 2019-06-15 21:03 | Emergency (ER) | payer OTHER ==
[2019-06-15 21:31] VITALS: BP 108/57
--- NOTE | 2019-06-15 22:04 | UC ---
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 SHE IS HAVING DIFFICULTY WITH WEIGHTBEARING AND AMBULATING. - History of Current Complaint Chief Complaint: UCLowerExtremity Stated Complaint: ANKLE INJURY Time Seen by Provider: 06/15/19 21:46 Hx Obtained From: Patient Hx Last Menstrual Period: tubal ligation Onset/Duration: Sudden Onset, Lasting Hours, Still Present Severity Initially: Moderate Severity Currently: Moderate Pain Intensity: 0 Pain Scale Used: 0-10 Numeric Aggravating Factor(s): Standing, Ambulation Alleviating Factor(s): Rest, Elevation Able to Bear Weight: Yes - WITH PAIN - Allergies/Home Medications Allergies/Adverse Reactions: Allergies Allergy/AdvReac Type Severity Reaction Status Date / Time acetaminophen [From Vicodin] Allergy Rash Verified 06/15/19 21:31 aloe Allergy Swelling Verified 06/15/19 21:31 Of Face,Lips,& Throat hydrocodone [From Vicodin] Allergy Rash Verified 06/15/19 21:31 latex Allergy Swelling Verified 06/15/19 21:31 PMH/Surg Hx/FS Hx/Imm Hx Respiratory History: Asthma Other History Of: Negative For: Anticoagulant Therapy - Surgical History Surgical History: Yes Surgery Procedure, Year, and Place: D&C, 2008, [facility] - Family History Known Family History: Positive: Cardiac Disease, Diabetes, Respiratory Disease - Social History Alcohol Use: Occasionally Alcohol Amount: 2 per month Substance Use Type: None Substance Use Comment - Amount & Last Used: pt notes remote hx of use. no use during preg noted Smoking Status (MU): Heavy Every Day Tobacco Smoker Type: Cigarettes Amount Used/How Often: 1/2 PPD for 21 years Have You Smoked in the Last Year: Yes Household Exposure Type: Cigarettes - Immunization History Most Recent Influenza Vaccination: not received Most Recent Tetanus Shot: 2009 Most Recent Pneumonia Vaccination: never Review of Systems All Other Systems Reviewed And Are Negative: Yes Constitutional: Positive: Negative Skin: Positive: Negative Respiratory: Positive: Negative Cardiovascular: Positive: Negative Gastrointestinal: Positive: Negative Musculoskeletal: Positive: Arthralgia, Decreased ROM Physical Exam Triage Information Reviewed: Yes Appearance: Well-Appearing, No Pain Distress, Well-Nourished Vital Signs: Initial Vital Signs Temp 98.6 F 06/15/19 21:28 Pulse 98 06/15/19 21:28 Resp 18 06/15/19 21:28 BP 108/57 06/15/19 21:28 Pulse Ox 100 06/15/19 21:28 Vital Signs Reviewed: Yes Eyes: Positive: Conjunctiva Clear ENT: Positive: Hearing grossly normal Neck: Positive: Supple Respiratory: Positive: No respiratory distress, No accessory muscle use Cardiovascular: Positive: Pulses Normal Abdomen Description: Positive: Soft Musculoskeletal: Positive: No Edema, ROM Limited @ - RIGHT ANKLE AND TOES, Other : - TTP RIGHT ANKLE DISTAL TO LATERAL MALLEOLUS. ACHILLES INTACT Neurological: Positive: Alert Psychological: Positive: Normal Response To Family, Age Appropriate Behavior Skin: Negative: Rashes Diagnostics - Radiology RIGHT ANKLE XRAYS Radiology Interpretation Completed By: ED Physician Summary of Radiographic Findings: NO FRACTURE OR DISLOCATION Lower Extremity Course/Dx - Course Course Of Treatment: RIGHT ANKLE X-RAY SHOWS NO BONY INJURY ON MY INITIAL INTERPRETATION. RADIOLOGY READ IS PENDING. PATIENT HAS AN AT HOME AND IS CONCERNED ABOUT MOBILITY SO WILL PROVIDE CAM BOOT WHICH SHOULD HELP. ENCOURAGED TO R.I.C.E ABLE. OTC MEDICATIONS NEEDED FOR DISCOMFORT. FOLLOW-UP WITH PCP OR OR SO IF NOT IMPROVING EXPECTED. - Differential Dx/Diagnosis Provider Diagnosis: Contusion of right ankle Discharge - Sign-Out/Discharge Documenting (check all that apply): Patient Departure All imaging exams completed and their final reports reviewed: No - Discharge Plan Condition: Stable Disposition: HOME Patient Education Materials: Foot Contusion (ED) Referrals: Jessica Gordon NP [Primary Care Provider] - If Needed Bess Finnegan MD [Medical Doctor] - If Needed Additional Instructions: XRAY TODAY NEGATIVE FOR FRACTURE OR DISLOCATION. YOUR SYMPTOMS SHOULD IMPROVE SIGNIFICANTLY OVER THE NEXT 1-2 WEEKS. IF YOU DO NOT IMPROVE EXPECTED FOLLOW- UP WITH YOUR PCP OR ORTHO. YOU MAY BENEFIT FROM REPEAT IMAGING AT THAT TIME. OTC IBUPROFEN OR ALEVE NEEDED FOR DISCOMFORT. REST, ICE, COMPRESS, ELEVATE. CAM BOOT WILL HELP WITH MOBILITY. - Billing Disposition and Condition Condition: STABLE Disposition: Home
--- NOTE | 2019-06-16 11:22 | UC ---
- Progress Note Progress Note: wet read correct Course/Dx - Diagnoses Provider Diagnoses: Contusion of right ankle Discharge - Sign-Out/Discharge Documenting (check all that apply): Post-Discharge Follow Up All imaging exams completed and their final reports reviewed: Yes - Discharge Plan Condition: Stable Disposition: HOME Patient Education Materials: Foot Contusion (ED) Referrals: Jessica Gordon NP [Primary Care Provider] - If Needed Bess Finnegan MD [Medical Doctor] - If Needed Additional Instructions: XRAY TODAY NEGATIVE FOR FRACTURE OR DISLOCATION. YOUR SYMPTOMS SHOULD IMPROVE SIGNIFICANTLY OVER THE NEXT 1-2 WEEKS. IF YOU DO NOT IMPROVE EXPECTED FOLLOW- UP WITH YOUR PCP OR ORTHO. YOU MAY BENEFIT FROM REPEAT IMAGING AT THAT TIME. OTC IBUPROFEN OR ALEVE NEEDED FOR DISCOMFORT. REST, ICE, COMPRESS, ELEVATE. CAM BOOT WILL HELP WITH MOBILITY. - Billing Disposition and Condition Condition: STABLE Disposition: Home
== END 2019-06-15 22:12 | disposition home or self-care (01) ==
LOC: UCEAST 21:03
DX: S90.01XA Contusion of right ankle, initial encounter (principal); V48.4XXA Person boarding or alighting a car injured in noncollision transport accident, initial encounter; Y92.9 Unspecified place or not applicable; J45.909 Unspecified asthma, uncomplicated; F17.210 Nicotine dependence, cigarettes, uncomplicated; Z91.040 Latex allergy status
CPT/HCPCS: 99212; G0463

== ENCOUNTER 2019-08-05 08:21 | Emergency (ER) | payer OTHER ==
[2019-08-05 08:40] VITALS: BP 153/74
--- NOTE | 2019-08-05 09:24 | UC ---
Abdominal Pain Female HPI - HPI Summary HPI Summary: 33-year-old female presents with sudden onset of upper abdominal pain last evening after eating supper. Describes pain as a constant ache. Nonradiating. Does increase in intensity at times. Associated with nausea and multiple episodes of vomiting last evening. No episodes of vomiting this morning. Denies fever, chills, weakness, dizziness, diarrhea, dysuria, frequency, urgency , or hematuria. - History of Current Complaint Chief Complaint: UCAbdominalPain Stated Complaint: ABD PAIN Time Seen by Provider: 08/05/19 08:44 Hx Obtained From: Patient Hx Last Menstrual Period: 07/02/19 Pain Intensity: 11 Allergies/Adverse Reactions: Allergies Allergy/AdvReac Type Severity Reaction Status Date / Time acetaminophen [From Vicodin] Allergy Rash Verified 08/05/19 08:41 aloe Allergy Swelling Verified 08/05/19 08:41 Of Face,Lips,& Throat hydrocodone [From Vicodin] Allergy Rash Verified 08/05/19 08:41 latex Allergy Swelling Verified 08/05/19 08:41 PMH/Surg Hx/FS Hx/Imm Hx Previously Healthy: Yes - Denies significant PMH Other History Of: Negative For: Anticoagulant Therapy - Surgical History Surgical History: Yes Surgery Procedure, Year, and Place: D&C, 2008, [facility], tubal ligation - Family History Known Family History: Positive: Cardiac Disease, Diabetes, Respiratory Disease, Other - Gall bladder father - Social History Occupation: Employed Full-time Lives: With Family Alcohol Use: Occasionally Alcohol Amount: 2 per month Substance Use Type: None Substance Use Comment - Amount & Last Used: pt notes remote hx of use. no use during preg noted Smoking Status (MU): Heavy Every Day Tobacco Smoker Type: Cigarettes Amount Used/How Often: 1/2 PPD for 21 years Have You Smoked in the Last Year: Yes Household Exposure Type: Cigarettes - Immunization History Most Recent Influenza Vaccination: not received Most Recent Tetanus Shot: 2009 Most Recent Pneumonia Vaccination: never Review of Systems All Other Systems Reviewed And Are Negative: Yes Constitutional: Negative: Fever, Chills Respiratory: Positive: Negative Cardiovascular: Positive: Negative Gastrointestinal: Positive: Abdominal Pain, Vomiting, Nausea. Negative: Diarrhea Genitourinary: Negative: Dysuria, Hematuria, Frequency, Urgency Musculoskeletal: Positive: Negative Neurological: Positive: Negative Is Patient Immunocompromised?: No Physical Exam - Summary Physical Exam Summary: GENERAL APPEARANCE: Well developed, well nourished, alert and cooperative, and appears to be in no acute distress. EYES: Conjunctiva clear. No drainage. EARS: External auditory canals and tympanic membranes clear, hearing grossly intact. NOSE: No nasal discharge. THROAT: Pharynx normal No tonsilar inflammation, swelling, exudate, or lesions. Uvula midline. Oral cavity normal. Teeth and gingiva in good general condition. NECK: Neck supple, non-tender without lymphadenopathy. CARDIAC: Normal S1 and S2. No S3, S4 or murmurs. Rhythm is regular. There is no peripheral edema, cyanosis or pallor. Extremities are warm and well perfused. Capillary refill is less than 2 seconds. Peripheral pulses intact. LUNGS: Clear to auscultation without rales, rhonchi, wheezing or diminished breath sounds. ABDOMEN: Positive bowel sounds. Soft, nondistended. Tenderness epigastrum. No guarding or rebound. No masses or hepatosplenomegally. No CVA tenderness. MUSKULOSKELETAL: ROM intact to all extremities. No joint erythema or tenderness. Normal muscular development. Normal gait. SKIN: Skin normal color, texture and turgor with no lesions or eruptions. Triage Information Reviewed: Yes Vital Signs: Initial Vital Signs Temp 97 F 08/05/19 08:36 Pulse 90 08/05/19 08:36 Resp 18 08/05/19 08:36 BP 153/74 08/05/19 08:36 Pulse Ox 100 08/05/19 08:36 Vital Signs Reviewed: Yes Diagnostics - Radiology No standard instances Radiology Interpretation Completed By: Radiologist Summary of Radiographic Findings: Patient Name: JOEL THOMAS Medical Record# : [id number]. Ordering Physician: Manuel Hawthorne NP. Acct.#: [id number]. : 1985 Age: 33 Sex: F. Location: [facility]. Exam Date : 08/05/19914. ADM Status: REG ER. Order Information: US GALL BLADDER. Accession Number: [id number] CPT: 23855. HISTORY: Upper abdominal pain. COMPARISONS: CT dated February 25, 2016 TECHNIQUE: Multiple transverse and longitudinal ultrasound images were obtained of the right upper quadrant of the abdomen using grayscale, color Doppler, and spectral Doppler imaging. FINDINGS : LIVER: The liver is mildly echogenic and coarse in echotexture, with decreased acoustic transmission. The liver is otherwise normal in shape and contour. There is normal hepatopedal flow of the portal vein on Doppler imaging. The liver measures 17.5 cm in length. BILIARY TREE: There is no intrahepatic or extrahepatic biliary dilatation. The common hepatic duct measures 0.2 cm. The common bile duct measures 0.3 cm. GALLBLADDER: The gallbladder is well-visualized. There is no cholelithiasis, gallbladder wall thickening, pericholecystic fluid, or sonographic [place] sign. PANCREAS: The head of the pancreas is unremarkable. The tail of the pancreas is not well visualized secondary to overlying bowel gas. RIGHT KIDNEY: The right kidney is normal in shape, size, contour, and echogenicity. There is no hydronephrosis or nephrolithiasis. The right kidney measures 11.7 cm x 5.2 cm x 5.0 cm. AORTA AND IVC: The aorta and IVC are unremarkable. Normal venous waveforms are identifiable on spectral Doppler imaging within the IVC. FLUID: There are no pleural effusions. There is no free fluid within the hepatorenal recess. OTHER FINDINGS: None. IMPRESSION: MILDLY ECHOGENIC LIVER SUGGESTIVE OF FATTY INFILTRATION. < Electronically signed by Jose Manuel Iyer MD in OV> 08/05/19 1005 Dictated By : Jose Manuel Iyer MD Dictated Date/Time: 08/05/19 1003 Transcribed Date/Time : 08/05/19 1003 Copy to: CC:Manuel Hawthorne NP; Kanchan Argueta MD; Jessica Gordon NP Imaging - [facility] Imaging - [facility] Imaging - [facility] [address] [address] ph ([phone]) ph ([phone]) ph ([phone]) End of Report Content Abd Pain Female Course/Dx - Course Course Of Treatment: 33-year-old female presents with sudden onset of upper abdominal pain last evening after eating supper. Describes pain as a constant ache. Nonradiating. Does increase in intensity at times. Associated with nausea and multiple episodes of vomiting last evening. No episodes of vomiting this morning. Denies fever, chills, weakness, dizziness, diarrhea, dysuria, frequency, urgency , or hematuria. Afebrile. Hypertensive otherwise vital signs stable. Patient had a soft, nondistended abdomen with tenderness over the epigastrum without guarding, rebound, masses, hepatosplenomegally, or CVA tenderness. Remainder of exam was unremarkable. [id number] urinalysis was normal. Urine negative. Ultrasound of the gallbladder showed evidence of fatty liver infiltrate but no acute gallbladder disease. Results reviewed with the patient. Will start her on famotidine 20 mg twice a day and have her follow up with her primary care provider in 3-5 days for recheck of symptoms and to follow up on her ultrasound results. Anticipatory guidance and warning symptoms reviewed with the patient. Verbalizes understanding and agrees care. - Differential Dx/Diagnosis Differential Diagnosis: Gall Bladder Disease, Hepatitis, Pancreatitis, Peptic Ulcer Disease, Renal Colic, Urinary Tract Infection Provider Diagnosis: Upper abdominal pain Discharge ED - Sign-Out/Discharge Documenting (check all that apply): Patient Departure All imaging exams completed and their final reports reviewed: Yes - Discharge Plan Condition: Stable Disposition: HOME Prescriptions: Famotidine [Acid Controller] 20 mg PO BID #28 tablet Patient Education Materials: Acute Abdominal Pain (ED) Forms: *Work Release Referrals: Jessica Gordon NP [Primary Care Provider] - Additional Instructions: The urine test performed in the clinic today was normal. The ultrasound showed evidence of fatty liver which is an incidental finding and not likely the cause of your pain. The gall bladder was normal. Start famotidine 20 mg twice a day. Drink plenty of fluids. Try to drink small amounts frequently to avoid filling your stomach to full which can cause vomiting. If you are still having nausea or vomiting, start with a clear liquid diet including soup broths, Jello, popsicles, and beny-fracisco with carbonation stirred out of it. You may then advance to a bland diet including saltine crackers, toast, bananas, rice, and applesauce. Then return to a normal diet as tolerated. Follow up here or with your primary care provider in 3-5 days for a recheck of your symptoms and to follow up on the ultrasound findings. Seek immediate medical attention in the emergency room if you develop fever greater than 100.5 F, have severe abdominal pain, persistent vomiting, blood in your vomit or stool, or any worsening of symptoms. - Billing Disposition and Condition Condition: STABLE Disposition: Home - Attestation Statements Provider Attestation: I was available for consult. This patient was seen by the KENNY. The patient was not presented to, seen by, or examined by me. -Alcon
== END 2019-08-05 10:43 | disposition home or self-care (01) ==
LOC: UCEAST 08:21
DX: R10.10 Upper abdominal pain, unspecified (principal); F17.210 Nicotine dependence, cigarettes, uncomplicated; Z91.040 Latex allergy status
CPT/HCPCS: 76705; 81003; 99212; G0463

== ENCOUNTER 2019-09-16 08:21 | Emergency (ER) | payer OTHER ==
--- OUTSIDE RECORDS SUMMARY | 2019-09-16 08:27 | XMS REPORT | Continuity of Care Document ---
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 smokes every day Smoking Status Reviewed: 08/08/19 Patient is a current smoker, 1 carton a week. smokes every day Allergies, Adverse Reactions, Alerts Active Allergies Reaction Severity Comments Date Vicodin Urticaria Severe 01/09/2012 Latex Moderate swelling, itchy, burning 03/16/2016 aloe skin peels 03/16/2016 Medications Active Medications SIG Qnty Indications Ordering Provider Date Omeprazole 1 by mouth every 30tabs R10.816 Jessica Gordon, 08/08/2019 20mg Tablets day N.P. DR G[place] Viscous swish and gargle 100ml Jessica Gordon, 07/26/2017 2% 15 ml every 3- 4 N.P. Solution hours as needed Promethazine HCL take 1 tablet by Unknown 25mg mouth every 6 Tablets hours if needed for vomiting History Medications Famotidine Twice Daily 28tabs Unknown 08/05/2019 - 20mg Tablets 08/08/2019 Clindamycin HCL One po tid x 30caps K05.20 Jessica Gordon, 04/04/2019 - 300mg 10 days N.P. 04/14/2019 Capsules Immunizations Description No Information Available Vital Signs Date Vital Result Comment 08/08/2019 10:52am Height 64.5 inches 5'4.50" Weight 167.00 lb Heart Rate 88 /min BP Systolic Sitting 116 mmHg BP Diastolic Sitting 75 mmHg Body Temperature 98.1 F O2 % BldC Oximetry 98 % BMI (Body Mass Index) 28.2 kg/m2 04/04/2019 11:37am Height 64.5 inches 5'4.50" Weight 172.00 lb Heart Rate 89 /min BP Systolic 112 mmHg BP Diastolic 71 mmHg Body Temperature 97.6 F O2 % BldC Oximetry 97 % BMI (Body Mass Index) 29.1 kg/m2 Results Test Date Facility Test Result H/L Range Note Poc Urinalysis 08/05/2019 [facility] Poc Glucose, Negative Negative [address] [place] [address] [phone] Poc Bilirubin, Urine Negative Negative Poc Ketone, Urine Negative Negative Poc Specific [place], Urine 1.020 Normal 1.010-1.030 Poc Blood, Urine Negative Negative Poc pH, Urine 7.5 Normal 5-9 Poc Protein, Urine Negative Negative Poc Urobilinogen, Urine 0.2 Negative Poc Nitrite, Urine Negative Negative Poc Leukocytes, Urine Negative Negative Poc Color, Urine Yellow Poc Clarity, Urine Slightly Cloudy 1 1 Animal Shelter Manager: [id number] Procedures Description No Information Available Medical Devices Description No Information Available Encounters Type Date Location Provider Dx Diagnosis Office Visit 04/04/2019 [facility] Internal Jessica Gordon K05.20 Aggressive 11:40a Medicine - [facility] N.P. 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 Take 1 tablet daily. Stop taking the Famotidine for now.Avoid spicy, greasy, and acidic foods. Coffee and alcohol will also aggravate your symptoms.Follow up:F/U abd pain in 2 weeks Functional Status Description No Information Available Mental Status Description No Information Available Referrals Description No Information Available
--- OUTSIDE RECORDS SUMMARY | 2019-09-16 08:27 | XMS REPORT | Continuity of Care Document ---
:1985 External Reference #:[id number] Author Name Jessica Gordon N.P. 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 smokes every day Smoking Status Reviewed: 08/26/19 Patient is a current smoker, 1 carton a week. smokes every day Allergies, Adverse Reactions, Alerts Active Allergies Reaction Severity Comments Date Vicodin Urticaria Severe 01/09/2012 Latex Moderate swelling, itchy, burning 03/16/2016 aloe skin peels 03/16/2016 Medications Active Medications SIG Qnty Indications Ordering Provider Date Omeprazole 1 by mouth every 30tabs R10.816 Jessica Gordon, 08/08/2019 20mg Tablets day N.P. Promethazine HCL take 1 tablet by Unknown 25mg mouth every 6 Tablets hours if needed for vomiting History Medications Famotidine Twice Daily 28tabs Unknown 08/05/2019 - 20mg Tablets 08/08/2019 Clindamycin HCL One po tid x 30caps K05.20 Jessica Gordon, 04/04/2019 - 300mg 10 days N.P. 04/14/2019 Capsules Immunizations Description No Information Available Vital Signs Date Vital Result Comment 08/26/2019 4:05pm Height 64.5 inches 5'4.50" Weight 169.00 lb Heart Rate 108 /min BP Systolic 121 mmHg BP Diastolic 73 mmHg Body Temperature 98.1 F O2 % BldC Oximetry 99 % BMI (Body Mass Index) 28.6 kg/m2 08/08/2019 10:52am Height 64.5 inches 5'4.50" Weight 167.00 lb Heart Rate 88 /min BP Systolic Sitting 116 mmHg BP Diastolic Sitting 75 mmHg Body Temperature 98.1 F O2 % BldC Oximetry 98 % BMI (Body Mass Index) 28.2 kg/m2 Results Test Date Facility Test Result H/L Range Note CBC Auto 08/08/2019 [facility] White Blood 6.3 10^3/uL Normal 3.5-10.[address] [place] [address] [phone] Red Blood Count 4.37 10^6/uL Normal 3.70-4.87 Hemoglobin 13.4 g/dL Normal 12.0-16.0 Hematocrit 39 % Normal 35-47 Mean Corpuscular Volume 90 fL Normal 80-97 Mean Corpuscular Hemoglobin 31 pg Normal 27-31 Mean Corpuscular HGB Conc 34 g/dL Normal 31-36 Red Cell Distribution Width 14 % Normal 10-15 Platelet Count 220 10^3/uL Normal 150-450 Mean Platelet Volume 9.8 fL Normal 7.4-10.4 Abs Neutrophils 3.8 10^3/uL Normal 1.5-7.7 Abs Lymphocytes 1.9 10^3/uL Normal 1.0-4.8 Abs Monocytes 0.5 10^3/uL Normal 0-0.8 Abs Eosinophils 0.1 10^3/uL Normal 0-0.6 Abs Basophils 0.0 10^3/uL Normal 0-0.2 Abs Nucleated RBC 0.0 10^3/uL Granulocyte % 59.9 % Lymphocyte % 30.6 % Monocyte % 7.4 % Eosinophil % 1.5 % Basophil % 0.6 % Nucleated Red Blood Cells % 0.0 Laboratory test 08/08/2019 [facility] Amylase 30 U/L Normal 29 -[address] [place] [address] [phone] Lipase 16 U/L Normal 11.0-82.0 Comp Metabolic 08/08/2019 [facility] Sodium 141 mmol/L Normal 135-[address] [place] [address] [phone] Potassium 4.2 mmol/L Normal 3.5-5.0 Chloride 105 mmol/L Normal 101-111 Co2 Carbon Dioxide 30 mmol/L Normal 22-32 Anion Gap 6 mmol/L Normal 2-11 Glucose 84 mg/dL Normal 70-100 Blood Urea Nitrogen 9 mg/dL Normal 6-24 Creatinine 0.64 mg/dL Normal 0.51-0.95 BUN/Creatinine Ratio 14.1 Normal 8-20 Calcium 9.2 mg/dL Normal 8.6-10.3 Total Protein 6.7 g/dL Normal 6.4-8.9 Albumin 4.5 g/dL Normal 3.2-5.2 Globulin 2.2 g/dL Normal 2-4 Albumin/Globulin Ratio 2.0 Normal 1-3 Total Bilirubin 0.40 mg/dL Normal 0.2-1.0 Alkaline Phosphatase 45 U/L Normal 34-104 Alt 11 U/L Normal 7-52 Ast 15 U/L Normal 13-39 Egfr Non- 108.2 >60 Egfr 131.0 >60 1 Poc Urinalysis 08/05/2019 [facility] Poc Glucose, Negative Negative [address] [place] [address] [phone] Poc Bilirubin, Urine Negative Negative Poc Ketone, Urine Negative Negative Poc Specific [place], Urine 1.020 Normal 1.010-1.030 Poc Blood, Urine Negative Negative Poc pH, Urine 7.5 Normal 5-9 Poc Protein, Urine Negative Negative Poc Urobilinogen, Urine 0.2 Negative Poc Nitrite, Urine Negative Negative Poc Leukocytes, Urine Negative Negative Poc Color, Urine Yellow Poc Clarity, Urine Slightly Cloudy 2 1 Because ethnic data is not always readily available, this report includes an eGFR for both -Americans and non- Americans. The National Kidney Disease Education Program (NKDEP) does not endorse the use of the MDRD equation for patients that are not between the ages of 18 and 70, are , have extremes of body size, muscle mass, or nutritional status, or are non- or non-. According to the National Kidney Foundation, irrespective of diagnosis, the stage of the disease is based on the level of kidney function: Stage Description GFR(mL/min/1.73 m(2)) 1 Kidney damage with normal or decreased GFR 90 2 Kidney damage with mild decrease in GFR 60-89 3 Moderate decrease in GFR 30-59 4 Severe decrease in GFR 15-29 5 Kidney failure <15 (or dialysis) 2 Implementation Consultant: [id number] Procedures Description No Information Available Medical Devices Description No Information Available Encounters Type Date Location Provider Dx Diagnosis Office Visit 08/08/2019 [facility] Internal Jessica Gordon, R10.816 Epigastric 10:40a Medicine - [facility] N.P. abdominal tenderness Office Visit 04/04/2019 [facility] Internal Jessica Gordon, K05.20 Aggressive 11:40a Medicine - [facility] N.P. periodontitis, unspecified Assessments Date Code Description Provider 08/26/2019 R10.816 Epigastric abdominal tenderness Jessica Gordon, N.P. 08/08/2019 R10.816 Epigastric abdominal tenderness Jessica Gordon, N.P. 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 Plan of Treatment 08/26/2019 - Jessica Gordon, N.P.R10.816 Epigastric abdominal tendernessComments: For your abdominal continue taking the Omeprazole another month.Avoid spicy, greasy, and acidic foods. Alcohol and coffee will also bother your stomach.Try to go off the Omeprazole slowly. If your pain does not go away completely, please contact the office. Functional Status Description No Information Available Mental Status Description No Information Available Referrals Description No Information Available
--- NOTE | 2019-09-16 08:53 | UC ---
Back Pain HPI - HPI Summary HPI Summary: Patient is a 33-year-old female presenting with and son with right lower back pain that radiates to right lower quadrant that woke her up this morning around 4 AM. Patient states the pain is constant and feels like a hot coal in her back. States pain is worse when sitting and lying down and better with standing. He notes one episode of nausea and vomiting this morning. States she is eating and drinking normally otherwise. Also notes urinary frequency but states that happens with her sometimes. Denies burning or blood in the urine. Denies difficulty with BMs. Denies injury or trauma to back. Denies fever and chills. Denies headaches. States this pain has happened in the past but never this bad. He notes that when this has happened in the past the pain resolves Gerard up with a bruise on her side. Has never been worked up for this before. Patient is not currently taking any medication for pain. Denies history of kidney stones. Patient still has appendix. Denies . - History of Current Complaint Chief Complaint: UCBackPain Stated Complaint: LOWER BACK PAIN Time Seen by Provider: 09/16/19 08:51 Hx Obtained From: Patient, Family/Lens Examiner Hx Last Menstrual Period: 08/27/19 ?: No Onset/Duration: Sudden Onset, Lasting Hours Pain Intensity: 8 - Allergies/Home Medications Allergies/Adverse Reactions: Allergies Allergy/AdvReac Type Severity Reaction Status Date / Time acetaminophen [From Vicodin] Allergy Rash Verified 09/16/19 08:31 aloe Allergy Swelling Verified 09/16/19 08:31 Of Face,Lips,& Throat hydrocodone [From Vicodin] Allergy Rash Verified 09/16/19 08:31 latex Allergy Swelling Verified 09/16/19 08:31 PMH/Surg Hx/FS Hx/Imm Hx Other History Of: Negative For: Anticoagulant Therapy - Surgical History Surgical History: Yes Surgery Procedure, Year, and Place: D&C, 2008, [facility], tubal ligation - Family History Known Family History: Positive: Cardiac Disease, Diabetes, Respiratory Disease, Other - Gall bladder father - Social History Alcohol Use: Occasionally Alcohol Amount: 2 per month Substance Use Type: None Substance Use Comment - Amount & Last Used: pt notes remote hx of use. no use during preg noted Smoking Status (MU): Heavy Every Day Tobacco Smoker Type: Cigarettes Amount Used/How Often: 1/2 PPD for 21 years Have You Smoked in the Last Year: Yes Household Exposure Type: Cigarettes - Immunization History Most Recent Influenza Vaccination: not received Most Recent Tetanus Shot: 2009 Most Recent Pneumonia Vaccination: never Review of Systems All Other Systems Reviewed And Are Negative: Yes Constitutional: Positive: Negative. Negative: Fever, Chills, Fatigue Skin: Positive: Negative. Negative: Bruising ENT: Positive: Negative Respiratory: Positive: Negative. Negative: Shortness Of Breath, Cough Cardiovascular: Positive: Negative Gastrointestinal: Positive: Abdominal Pain - RLQ, Vomiting, Nausea Genitourinary: Positive: Frequency. Negative: Dysuria, Hematuria, Urgency, Vaginal/Penile Burning, Vaginal/Penile Itching, Vaginal/Penile Discharge, Vaginal/Penile Pain, Abnormal Bleeding Musculoskeletal: Positive: Arthralgia - R low back pain. Negative: Decreased ROM, Edema Neurological: Positive: Negative Physical Exam Triage Information Reviewed: Yes Appearance: Well-Appearing, No Pain Distress, Well-Nourished Vital Signs: Initial Vital Signs Temp 98.8 F 09/16/19 08:27 Pulse 104 09/16/19 08:27 Resp 18 09/16/19 08:27 BP 117/94 09/16/19 08:27 Pulse Ox 100 09/16/19 08:27 Lab Results 09/16/19 09/16/19 Range/Units 08:39 08:41 POC Urine Color Light yellow POC Urine Clarity Clear POC Urine pH 7.0 (5-9) POC Ur Specif [place] 1.010 (1.010-1.030) POC Urine Protein Negative (Negative) POC Ur Glucose (UA) Negative (Negative) POC Urine Ketones Negative (Negative) POC Urine Blood Negative (Negative) POC Urine Nitrite Negative (Negative) POC Urine Bilirubin Negative (Negative) POC Urine Urobilinogen 0.2 (Negative) POC U Leukocyte Esteras Negative (Negative) POC Ur Test Negative (Negative) Vital Signs Reviewed: Yes Eyes: Positive: Conjunctiva Clear ENT: Positive: Hearing grossly normal, Pharynx normal, TMs normal, Uvula midline Neck exam: Normal Neck: Positive: Supple, Nontender, No Lymphadenopathy Respiratory Exam: Normal Respiratory: Positive: Lungs clear, Normal breath sounds, No respiratory distress Cardiovascular Exam: Normal Cardiovascular: Positive: RRR. Negative: Tachycardia Abdomen Description: Positive: No Organomegaly, Soft, McBurney's Point Tenderness. Negative: Nontender - mild tenderness to palpation of RLQ and RUQ, CVA Tenderness (R), CVA Tenderness (L), Distended, Guarding Bowel Sounds: Positive: Present Musculoskeletal Exam: Normal Neurological Exam: Other Neurological: Positive: Alert Psychological: Positive: Age Appropriate Behavior Skin Exam: Normal - No erythema or ecchymosis Diagnostics - Radiology CT abd/pel w/o Radiology Interpretation Completed By: Radiologist Summary of Radiographic Findings: IMPRESSION: 1. A 5 CM MIXED ATTENUATION RIGHT ADNEXAL STRUCTURE COULD BE REEFER ENGINEER OF A HEMORRHAGIC OVARIAN CYSTS; HOWEVER, IT IS INCOMPLETELY EVALUATED BY CT. PELVIC ULTRASOUND WOULD PROVIDE BETTER CHARACTERIZATION. 2. NO NEPHROLITHIASIS OR HYDRONEPHROSIS. 3. NORMAL APPENDIX. transvaginal US Radiology Interpretation Completed By: Radiologist Summary of Radiographic Findings: IMPRESSION: 1. TUBULAR STRUCTURE OF THE RIGHT HEMIPELVIS SUGGESTIVE OF HYDROSALPINX. 2. NO SONOGRAPHIC FEATURES OF TORSION. PLEASE NOTE THAT PARTIAL OR INTERMITTENT TORSION MAY BE SONOGRAPHICALLY NORMAL. 3. 2.4 CM SIMPLE CYST OF THE RIGHT OVARY. Back Pain Course/Dx - Course Course Of Treatment: Patient received CT abd/pel w/o contrast that revealed possible hemorrhagic ovarian cyst and suggested US for further imaging. Patient verbally agreed to transvaginal US which showed 2.5 cm R ovarian cysts and hydrosalpinx. I informed the patient of this and instructed her to continue with ibuprofen for pain relief. Educated her on ovarian cysts and informed her the pain should resolve on its own within a couple days. 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 Instructed her to go to the emergency room if her symptoms worsen. Patient's vital signs normal and in no apparent distress. Patient voiced understanding and agreed with the treatment plan. - Differential Dx/Diagnosis Provider Diagnosis: Right ovarian cyst Discharge ED - Sign-Out/Discharge Documenting (check all that apply): Patient Departure All imaging exams completed and their final reports reviewed: Yes - Discharge Plan Condition: Stable Disposition: HOME Patient Education Materials: Ovarian Cyst (ED) Referrals: Jessica Gordon NP [Primary Care Provider] - If Needed Torrie Sapp MD [Medical Doctor] - 7 Days Additional Instructions: As discussed, an 2.4cm ovarian cyst was found on your right ovary. This is a possible source of your pain. Ovarian cysts most commonly resolve on their own without treatment. You may continue with over the counter ibuprofen as directed for pain relief. Follow up with your OBGYN or the OBGYN referral listed below for further evaluation. Go to the emergency room if you experience worsening symptoms including severe pain, nausea and vomiting, or fever. - Billing Disposition and Condition Condition: STABLE Disposition: Home - Attestation Statements Provider Attestation: I was available for consult. This patient was seen by the KENNY. The patient was not presented to, seen by, or examined by me. -Alcon
[2019-09-16] MEDS ORDERED: Ibuprofen TAB* 600 MG PO ONE (09:05)
[2019-09-16 10:47] VITALS: BP 115/56
== END 2019-09-16 11:49 | disposition home or self-care (01) ==
LOC: UCEAST 08:21
DX: N83.201 Unspecified ovarian cyst, right side (principal); R53.83 Other fatigue; R11.0 Nausea; R35.0 Frequency of micturition; F17.210 Nicotine dependence, cigarettes, uncomplicated; Z91.048 Other nonmedicinal substance allergy status; Z88.5 Allergy status to narcotic agent; Z88.6 Allergy status to analgesic agent; Z91.040 Latex allergy status
CPT/HCPCS: 74176; 76830; 81003; 84702; 99212; A9270-GY; G0463